=== PATIENT | female | born 1960 | race Caucasian/White ===

== ENCOUNTER 2018-07-11 12:41 | Day surgery (SDC) | payer BC ==
--- NOTE | 2018-07-10 14:15 | HP ---
REPORT DICTATED AND TRANSCRIBED AT [facility] ON 07/09/2018, FAXED TO [facility] ON 07/10/2018. DATE OF SURGERY: 07/11/2018 ANTICIPATED PROCEDURE: Vaginoscopy, colonoscopy, hemorrhoidectomy, possible posterior colporrhaphy. HISTORY OF PRESENT ILLNESS: Patient has above stated disorder. C-scope negative at age 50. She is having some prolapse. She is not exactly sure what. Options were discussed with her. We will do a complete exam. If there are limited hemorrhoids that need resecting or if there is a posterior cul-de-sac that needs repair, we could possibly do that concurrently. PAST MEDICAL HISTORY: ALLERGIES: CODEINE. MEDICATIONS: Zoloft. PAST SURGICAL HISTORY: Hysterectomy. Rotator cuff. SOCIAL HISTORY: Negative. FAMILY HISTORY: Negative. REVIEW OF SYSTEMS: Negative. PHYSICAL EXAMINATION: VITAL SIGNS: Normal. CHEST: Clear. COR: Regular. ANAL, RECTAL, VAGINAL: As stated.
[~2018-07-11 12:41] MED LIST: Lactated Ringers 1,000 ML IV SCH; MEFOXIN 2 GM PREMIX** 2 GM/50 ML ML IV ONE; Pepcid 20 MG VIAL IV SCH; Reglan 10 MG/2 ML IV ONE; Transderm Scop 1.5MG Patch ONE; Transderm Scop 1.5MG Patch TOP PRN
[2018-07-11] MEDS ORDERED: BRIDION 200MG/2ML IV ONE (12:42)
[2018-07-11] MEDS ORDERED: Zemuron 100 MG/10 ML IV ONE (12:42)
[2018-07-11] MEDS ORDERED: Versed 2 MG/2 ML Injection IV ONE (12:42)
[2018-07-11] MEDS ORDERED: SUBLIMAZE 100 MCG/2 ML IV ONE (12:42)
[2018-07-11] MEDS ORDERED: TORAdol 30 mg Injection IV ONE (12:42)
[2018-07-11] MEDS ORDERED: DIPRIVAN 200 MG/20 ML IV ONE (12:42)
[2018-07-11] MEDS ORDERED: Decadron 4 MG INJ IV ONE (12:42)
[2018-07-11] MEDS ORDERED: Zofran 4 MG/2 ML VIAL IV ONE (12:42)
[2018-07-11] MEDS ORDERED: Zofran 4 MG/2 ML VIAL ONE (18:37)
[2018-07-11] MEDS ORDERED: MORPHINE SULFATE 2 MG INJ IV PRN (20:07)
[2018-07-11] MEDS ORDERED: MORPHINE SULFATE 2 MG INJ ONE (20:08)
[2018-07-11] MEDS ORDERED: NORCO 5/325 MG PO PRN (20:15)
[2018-07-11] MEDS ORDERED: NORCO 5/325 MG ONE (20:16)
[2018-07-11 20:52] VITALS: BP 128/50; PULSE 77; O2SAT 97
--- NOTE | 2018-07-12 09:08 | OP ---
SURGERY DATE/TIME: 07/11/2018 180 PREOPERATIVE DIAGNOSIS: Patient requiring colonoscopy. POSTOPERATIVE DIAGNOSIS: Patient requiring colonoscopy. PROCEDURE: Colonoscopy. SURGEON: Bruce Hussein M.D. ANESTHESIA: General. COMPLICATIONS: None. CONDITION: Stable. INDICATION: She is requiring exam under anesthesia. She may have some prolapse. She certainly seems to have some hemorrhoidal tissue and she may have a rectocele. DESCRIPTION OF PROCEDURE: She was taken to surgery. Lithotomy. The colonoscope placed in the vagina. Not much information was obtained. It did not hold air well today. It was then placed in the rectum. There was external hemorrhoidal tags. There were internal hemorrhoids. There was a rectocele. It was a little better demonstrated even with the colonoscope. The colonoscope advanced up to the cecum. Base of cecum, ileocecal valve, ascending, hepatic, transverse, splenic, descending, sigmoid, rectum, anus. Six minute withdrawal time. Excellent prep. No mucosal lesions. Just a few scattered diverticulum and there was a rectocele. Exam under anesthesia anterior handheld speculum was placed and there was clearly a rectocele. The anterior vaginal mucosa was scored. The endopelvic fascia defined. Seven sutures #2-0 PDS were placed and then sequentially tied. The excess vaginal mucosa was trimmed off and it was closed with running locking suture of 2-0 Vicryl. There were three external hemorrhoids which were taken and secured with 2-0 chromic and there were three internals that were taken with suture #0 then clamped, amputated and secured with 2-0 chromic. Still allowed one and a half fingertips. There seems to be just a little of spasm in the anal canal. The patient tolerated the procedure satisfactorily. Findings discussed with the family in the waiting room.
== END 2018-07-11 21:10 | disposition home or self-care (01) ==
LOC: SDC 12:41
PROVIDERS: ATTEND Surgery
DX: K64.4 Residual hemorrhoidal skin tags (principal); K64.8 Other hemorrhoids; K57.30 Diverticulosis of large intestine without perforation or abscess without bleeding; N81.6 Rectocele; N89.8 Other specified noninflammatory disorders of vagina
CPT/HCPCS: 88302; 88304; J0694; J1100; J1885; J2250; J2270; J2405; J2704; J3010; A9270-GY

== ENCOUNTER 2020-04-07 18:28 | Emergency (ER) | payer BC ==
--- NOTE | 2020-04-07 18:29 | ERPHSYRPT ---
- History of Present Illness Time Seen by Provider: 04/07/20 18:29 Historian: patient Exam Limitations: no limitations Physician History: This is a 59-year-old overweight white female who presents with first diarrhea yesterday with mild right upper quad abdominal pain with radiation to her right back. Today, after eating yeast donuts she began having more significant right upper quadrant abdominal pain that has not let up. She has not had diarrhea since an episode last night. She also had a single, significant vomiting episode when the pain was severe earlier today. Patient denies chest pain. She does not have shortness of breath. She has had a hysterectomy in the past as well as a hemorrhoidectomy. No other abdominal surgeries have been performed. Timing/Duration: yesterday Abdominal Pain Onset Location: RUQ Pain Radiation: back Severity of Pain-Max: moderate Severity of Pain-Current: moderate Associated Symptoms: diarrhea, nausea, vomiting, No chest pain, No fever/chills Previous symptoms: no prior history Allergies/Adverse Reactions: codeine Adverse Reaction (Verified 04/07/20 18:55) Home Medications: Duloxetine HCl 30 mg [Cymbalta 30 MG Capsule] 30 mg PO DAILY 04/07/20 [History] Hx Tetanus, Diphtheria Vaccination/Date Given: No Hx Influenza Vaccination/Date Given: No Hx Pneumococcal Vaccination/Date Given: No Travel Risk - International Travel Have you traveled outside of the country in past 3 weeks: No - Coronavirus Screening Are you exhibiting any of the following symptoms?: No Close contact with a COVID-19 positive Pt in past 14-21 Days: No - Review of Systems Constitutional: No Symptoms Eyes: No Symptoms Ears, Nose, & Throat: No Symptoms Respiratory: No Symptoms Cardiac: No Symptoms Abdominal/Gastrointestinal: Abdominal Pain, Nausea, Vomiting Genitourinary Symptoms: No Symptoms Musculoskeletal: No Symptoms Skin: No Symptoms Neurological: No Symptoms Psychological: No Symptoms Endocrine: No Symptoms Hematologic/Lymphatic: No Symptoms Immunological/Allergic: No Symptoms All Other Systems: Reviewed and Negative - Past Medical History Pertinent Past Medical History: Yes Neurological History: Migraines ENT History: Other Cardiac History: No Pertinent History Respiratory History: No Pertinent History Endocrine Medical History: No Pertinent History Musculoskeletal History: No Pertinent History GI Medical History: Hemorrhoids History: No Pertinent History Psycho-Social History: No Pertinent History Female Reproductive Disorders: No Pertinent History Other Medical History: SINUS PROBLEMS - Past Surgical History Past Surgical History: Yes Neuro Surgical History: No Pertinent History Cardiac: No Pertinent History Respiratory: No Pertinent History Gastrointestinal: No Pertinent History Genitourinary: No Pertinent History Musculoskeletal: Orthopedic Surgery, Other Female Surgical History: Hysterectomy Other Surgical History: RIGHT SHOULDER ROTAR CUFF. LEFT FOOT PLANTER SURGERY - Social History Smoking Status: Never smoker Exposure to second hand smoke: No Drug Use: none Patient Lives Alone: No - Nursing Vital Signs Nursing Vital Signs: Initial Vital Signs Temperature 98.6 F 04/07/20 18:36 Pulse Rate 72 04/07/20 18:36 Respiratory Rate 18 04/07/20 18:36 Blood Pressure 174/82 04/07/20 18:36 O2 Sat by Pulse Oximetry 98 04/07/20 18:36 Pain Scale Pain Intensity 6 - Physical Exam General Appearance: mild distress, alert, anxiety, obese Eye Exam: PERRL/EOMI, eyes nml inspection Ears, Nose, Throat Exam: normal ENT inspection, moist mucous membranes Neck Exam: normal inspection, non-tender, supple, full range of motion Respiratory Exam: normal breath sounds, lungs clear, airway intact, No chest tenderness, No respiratory distress Cardiovascular Exam: regular rate/rhythm, normal heart sounds, normal peripheral pulses Gastrointestinal/Abdomen Exam: soft, normal bowel sounds, tenderness (With palpation), guarding (Quadrant with palpation) Pelvic Exam: not done Rectal Exam: not done Back Exam: normal inspection, normal range of motion, No CVA tenderness, No vertebral tenderness Extremity Exam: normal inspection, normal range of motion, pelvis stable Neurologic Exam: alert, oriented x 3, cooperative, licensed dispensing optician II-XII nml as tested, normal mood/affect, nml cerebellar function, nml station & gait, sensation nml Skin Exam: normal color, warm, dry Lymphatic Exam: No adenopathy SpO2 Interpretation: normal O2 Delivery: Room Air - Course Nursing assessment & vital signs reviewed: Yes Ordered Tests: Active Orders 24 hr Category Date Time Status IV Insertion STAT Care 04/07/20 19:14 Active ABDOMEN AND PELVIS W/0 CONTRAS [CT] Stat Exams 04/07/20 19:15 Taken AMYLASE Stat Lab 04/07/20 19:23 Completed CBC W DIFF Stat Lab 04/07/20 19:23 Completed CMP Stat Lab 04/07/20 19:23 Completed LIPASE Stat Lab 04/07/20 19:23 Completed Lactic Acid Stat Lab 04/07/20 19:20 Completed UA W/RFX UR CULTURE Stat Lab 04/07/20 19:23 Completed Medication Summary Generic Name Dose Route Start Last Admin Trade Name Vidya PRN Reason Stop Dose Admin Sodium Chloride 1,000 mls @ 999 mls/hr 04/07/20 19:14 04/07/20 19:30 Sodium Chloride 0.9% 1000 Ml IV 04/07/20 20:14 999 mls/hr .[id number] STA Administration Discontinued Medications Generic Name Dose Route Start Last Admin Trade Name Vidya PRN Reason Stop Dose Admin Sodium Chloride Confirm 04/07/20 19:28 Sodium Chloride 0.9% 1000 Ml Administered 04/07/20 19:29 Dose 1,000 mls @ ud .ROUTE .STK-MED ONE Meperidine HCl 25 mg 04/07/20 19:16 04/07/20 19:30 Demerol 25mg Syringe IV 04/07/20 19:17 25 mg STAT ONE Administration Meperidine HCl Confirm 04/07/20 19:28 Demerol 25mg Syringe Administered 04/07/20 19:29 Dose 25 mg .ROUTE .STK-MED ONE Ondansetron HCl 4 mg 04/07/20 19:14 04/07/20 19:30 Zofran 4 Mg/2 Ml Vial IV 04/07/20 19:15 4 mg STAT ONE Administration Ondansetron HCl Confirm 04/07/20 19:28 Zofran 4 Mg/2 Ml Vial Administered 04/07/20 19:29 Dose 4 mg .ROUTE .STK-MED ONE Lab/Rad Data: Laboratory Result Diagrams 04/07/20 19:23 04/07/20 19:23 Laboratory Results 04/07/20 04/07/20 04/07/20 Range/Units 19:23 19:23 19:23 WBC 9.4 (4.0-10.5) K/mm3 RBC 4.67 (4.1-5.4) M/mm3 Hgb 12.8 (12.0-16.0) gm/dl Hct 41.1 (35-47) % MCV 88.0 (78-100) fl MCH 27.4 (26-32) pg MCHC 31.1 L (32-36) g/dl RDW 15.7 H (11.5-14.0) % Plt Count 268 (150-450) K/mm3 MPV 11.3 H (7.5-11.0) fl Gran % 65.5 (36.0-66.0) % Eos # (Auto) 0.18 (0-0.5) Absolute Lymphs (auto) 2.27 (1.0-4.6) Absolute Monos (auto) 0.75 (0.0-1.3) Lymphocytes % 24.2 (24.0-44.0) % Monocytes % 8.0 (0.0-12.0) % Eosinophils % 1.9 (0.00-5.0) % Basophils % 0.4 (0.0-0.4) % Absolute Granulocytes 6.13 (1.4-6.9) Basophils # 0.04 (0-0.4) Sodium 139 (137-145) mmol/L Potassium 3.9 (3.5-5.1) mmol/L Chloride 100 (98-107) mmol/L Carbon Dioxide 31 H (22-30) mmol/L Anion Gap 11.1 (5-15) MEQ/L BUN 12 (7-17) mg/dL Creatinine 0.88 (0.52-1.04) mg/dL Estimated GFR > 60.0 ML/MIN Glucose 107 H (74-106) mg/dL Lactic Acid (0.4-2.0) Calcium 9.4 (8.4-10.2) mg/dL Total Bilirubin 0.20 (0.2-1.3) mg/dL AST 25 (14-36) U/L ALT 23 (0-35) U/L Alkaline Phosphatase 117 (38-126) U/L Serum Total Protein 8.0 (6.3-8.2) g/dL Albumin 4.5 (3.5-5.0) g/dL Amylase 61 (30-110) U/L Lipase 39 (23-300) U/L Urine Color YELLOW (YELLOW) Urine Appearance CLEAR (CLEAR) Urine pH 5.0 (5-6) Ur Specific [place] 1.015 (1.005-1.025) Urine Protein NEGATIVE (Negative) Urine Ketones NEGATIVE (NEGATIVE) Urine Blood NEGATIVE (0-5) Mark/ul Urine Nitrite NEGATIVE (NEGATIVE) Urine Bilirubin NEGATIVE (NEGATIVE) Urine Urobilinogen NEGATIVE (0-1) mg/dL Ur Leukocyte Esterase SMALL (NEGATIVE) Urine WBC (Auto) 6-10 (0-5) /HPF Urine RBC (Auto) NONE (0-2) /HPF U Epithel Cells (Auto) NONE (FEW) /HPF Urine Bacteria (Auto) NONE (NEGATIVE) /HPF Urine Mucus (Auto) SLIGHT (NEGATIVE) /HPF Urine Culture Reflexed NO (NO) Urine Glucose NEGATIVE (NEGATIVE) mg/dL 04/07/20 Range/Units 19:20 WBC (4.0-10.5) K/mm3 RBC (4.1-5.4) M/mm3 Hgb (12.0-16.0) gm/dl Hct (35-47) % MCV (78-100) fl MCH (26-32) pg MCHC (32-36) g/dl RDW (11.5-14.0) % Plt Count (150-450) K/mm3 MPV (7.5-11.0) fl Gran % (36.0-66.0) % Eos # (Auto) (0-0.5) Absolute Lymphs (auto) (1.0-4.6) Absolute Monos (auto) (0.0-1.3) Lymphocytes % (24.0-44.0) % Monocytes % (0.0-12.0) % Eosinophils % (0.00-5.0) % Basophils % (0.0-0.4) % Absolute Granulocytes (1.4-6.9) Basophils # (0-0.4) Sodium (137-145) mmol/L Potassium (3.5-5.1) mmol/L Chloride (98-107) mmol/L Carbon Dioxide (22-30) mmol/L Anion Gap (5-15) MEQ/L BUN (7-17) mg/dL Creatinine (0.52-1.04) mg/dL Estimated GFR ML/MIN Glucose (74-106) mg/dL Lactic Acid 1.5 (0.4-2.0) Calcium (8.4-10.2) mg/dL Total Bilirubin (0.2-1.3) mg/dL AST (14-36) U/L ALT (0-35) U/L Alkaline Phosphatase (38-126) U/L Serum Total Protein (6.3-8.2) g/dL Albumin (3.5-5.0) g/dL Amylase (30-110) U/L Lipase (23-300) U/L Urine Color (YELLOW) Urine Appearance (CLEAR) Urine pH (5-6) Ur Specific [place] (1.005-1.025) Urine Protein (Negative) Urine Ketones (NEGATIVE) Urine Blood (0-5) Mark/ul Urine Nitrite (NEGATIVE) Urine Bilirubin (NEGATIVE) Urine Urobilinogen (0-1) mg/dL Ur Leukocyte Esterase (NEGATIVE) Urine WBC (Auto) (0-5) /HPF Urine RBC (Auto) (0-2) /HPF U Epithel Cells (Auto) (FEW) /HPF Urine Bacteria (Auto) (NEGATIVE) /HPF Urine Mucus (Auto) (NEGATIVE) /HPF Urine Culture Reflexed (NO) Urine Glucose (NEGATIVE) mg/dL - Progress Progress: improved, pain not gone completely Progress Note: 04/07/20 19:20 Patient states she "goes crazy" after taking codeine. However, she is taken [place] and Vicodin and other forms of hydrocodone without any problems. Patient also states that she has had Demerol in the past without any problems. 04/07/20 19:59 CAT scan of the abdomen and pelvis without contrast shows for 1 cm gallstones all near the neck of the gallbladder. The remaining abdominal/pelvic CAT scan is negative. Counseled pt/family regarding: lab results, diagnosis, need for follow-up, rad results - Departure Departure Disposition: Home Clinical Impression: Right upper quadrant abdominal pain, UTI (urinary tract infection), Symptomatic cholelithiasis Condition: Stable Critical Care Time: No Referrals: LORENZA AGUILAR MD [Primary Care Provider] - Additional Instructions: Drink plenty of fluids. Avoid fatty greasy spicy foods. Follow-up with your primary care doctor for further management. Prescriptions: Ondansetron ODT 4 MG [Zofran Odt 4 mg] 4 mg PO Q6H PRN PRN #10 tab.rapdis PRN Reason: Vomiting Hydrocodone/APAP 5-325 Tab^^^ [[place] 5-325 Tablet^^^] 1 tab PO Q8H PRN PRN #6 tablet MDD 3 PRN Reason: Pain Ciprofloxacin [Cipro 500 MG] 500 mg PO BID #14 tablet
[2020-04-07] MEDS ORDERED: Zofran 4 MG/2 ML VIAL IV ONE (19:14)
[2020-04-07] MEDS ORDERED: Sodium Chloride 0.9% 1000 ML 1,000 ML IV STA (19:14)
[2020-04-07] MEDS ORDERED: DEMEROL 25MG SYRINGE IV ONE (19:16)
[2020-04-07 19:27] LABS: Absolute Neutrophil Ct (ANC) 6.13 (1.4-6.9); BASOPHIL % 0.4 % (0.0-0.4); Basophil (Absolute #) 0.04 (0-0.4); Eosinophil % 1.9 % (0.00-5.0); Eosinophil (Absolute #) 0.18 (0-0.5); Hematocrit 41.1 % (35-47); Hemoglobin 12.8 gm/dl (12.0-16.0); Lymphocyte (Absolute #) 2.27 (1.0-4.6); Lymphocytes % 24.2 % (24.0-44.0); Mean Corpuscular Hemoglobin 27.4 pg (26-32); Mean Corpuscular Hgb Concent. 31.1 g/dl (32-36); Mean Platelet Volume 11.3 fl (7.5-11.0); Monocyte (Absolute #) 0.75 (0.0-1.3); Neutrophil % 65.5 % (36.0-66.0); Platelet Count 268 K/mm3 (150-450); Red Blood Count 4.67 M/mm3 (4.1-5.4); Red Cell Distribution Width 15.7 % (11.5-14.0); White Blood Count 9.4 K/mm3 (4.0-10.5)
[2020-04-07] MEDS ORDERED: Sodium Chloride 0.9% 1000 ML 1,000 ML ONE (19:28)
[2020-04-07] MEDS ORDERED: Zofran 4 MG/2 ML VIAL ONE (19:28)
[2020-04-07] MEDS ORDERED: DEMEROL 25MG SYRINGE ONE (19:28)
[2020-04-07 19:32] LABS: Appearance CLEAR (CLEAR); Bilirubin NEGATIVE (NEGATIVE); Blood NEGATIVE Ery/ul (0-5); Glucose NEGATIVE (NEGATIVE); Ketones NEGATIVE (NEGATIVE); Leukocyte Esterase SMALL (NEGATIVE); Mucus SLIGHT /HPF (NEGATIVE); Nitrite NEGATIVE (NEGATIVE); Protein,Urine Dip NEGATIVE (Negative); Specific Gravity 1.015 (1.005-1.025); Urobilinogen NEGATIVE mg/dL (0-1)
[2020-04-07 19:35] LABS: ALBUMIN 4.5 g/dL (3.5-5.0); ALKALINE PHOSPHATASE 117 U/L (38-126); AMYLASE 61 U/L (30-110); ANION GAP 11.1 MEQ/L (5-15); BLOOD UREA NITROGEN 12 mg/dL (7-17); CHLORIDE 100 mmol/L (98-107); Calcium 9.4 mg/dL (8.4-10.2); Carbon Dioxide 31 mmol/L (22-30); Creatinine 1 0.88 mg/dL (0.52-1.04); EST GLOMERULAR FILTRATION RATE > 60.0 ML/MIN; Glucose 107 mg/dL (74-106); LIPASE 39 U/L (23-300); Potassium 3.9 mmol/L (3.5-5.1); SGOT/AST 25 U/L (14-36); SGPT/ALT 23 U/L (0-35); SODIUM 139 mmol/L (137-145)
[2020-04-07 19:40] VITALS: O2SAT 96
[2020-04-07] MEDS ORDERED: Levofloxacin 500 MG Tablet PO ONE (20:00)
[2020-04-07] MEDS ORDERED: NORCO 5/325 MG PO ONE (20:01)
[2020-04-07] MEDS ORDERED: ZOFRAN ODT 4 MG PO ONE ×2 (20:02→20:11)
[2020-04-07] MEDS ORDERED: Levofloxacin 500 MG Tablet ONE (20:03)
[2020-04-07] MEDS ORDERED: ZOFRAN ODT 4 MG ONE (20:08)
[2020-04-07] MEDS ORDERED: NORCO 5/325 MG ONE (20:08)
[2020-04-07 20:20] VITALS: BP 146/79; PULSE 76
--- NOTE | 2020-04-08 08:42 | XRAY ---
Indication: Right upper quadrant pain one day. Nausea and vomiting. Multiple contiguous axial images obtained through the abdomen and pelvis without contrast as ordered. Comparison: August 21, 2013. Lung bases again demonstrates minimal subsegmental atelectasis/scarring. No infiltrate or effusion. Heart is not enlarged. Noncontrasted stomach and bowel loops appear nonobstructed. Normal appendix. Again hysterectomy. Gallbladder now mildly distended with 4 new gallstones approximately 1 cm each and adjacent to the neck of the gallbladder. No abnormal biliary distention. Remaining liver, pancreas, spleen, adrenal glands, kidneys, ureters, and bladder appear unremarkable for noncontrast exam. Minimal aortic calcifications without AAA. Osseous structures intact with minimal degenerative changes throughout the spine. Impression: 1. Mildly distended gallbladder with new gallstones. Gallbladder sonogram may yield further information. 2. Remaining CT abdomen/pelvis without contrast exam is negative.
== END 2020-04-07 20:33 | disposition home or self-care (01) ==
LOC: ED 18:28
DX: R10.11 Right upper quadrant pain (principal); N39.0 Urinary tract infection, site not specified; K80.20 Calculus of gallbladder without cholecystitis without obstruction
CPT/HCPCS: 36000; 36415; 74176; 80053; 81001; 82150; 83605; 83690; 85025; 96374; 96375; 99284; J2175; J2405; Q0162; A9270-GY

== ENCOUNTER 2020-04-26 09:53 | Day surgery (SDC) | payer BC ==
--- NOTE | 2020-04-26 08:58 | HP ---
DATE OF SURGERY: 04/26/2020 HISTORY OF PRESENT ILLNESS: The patient is a 59 year old with two week history of bad gallbladder attacks requiring emergency department visit, right upper quadrant pain radiating to her back and right shoulder, nausea after eating. No jaundice. She denied any prior liver problems. Bowel movements are frequent according to the patient. PAST MEDICAL HISTORY: Anxiety. PAST SURGICAL HISTORY: Hysterectomy. Rotator cuff. Hemorrhoid. MEDICATIONS: Anxiety medications including Cymbalta. ALLERGIES: DEMEROL. FAMILY HISTORY: Negative in regards to this problem. SOCIAL HISTORY: Denied smoking or alcohol abuse. REVIEW OF SYSTEMS: Fourteen systems reviewed pertinent for as noted above. No chest pain or palpitations. Other than the pain radiating to the shoulder. Other systems negative or noncontributory as above and per preadmission questionnaire. LAB DATA AND TESTS: CT did show cholelithiasis. PHYSICAL EXAMINATION: GENERAL: No acute distress. HEENT: Sclerae nonicteric. NECK: No JVD. CHEST: Equal excursion, nonlabored breathing. CVS: Regular rate and rhythm. ABDOMEN: Soft, some tenderness to right upper quadrant. No peritoneal signs. EXTREMITIES: No significant edema. NEURO: Alert, oriented, moving extremities symmetrically. No gross motor deficits noted. PSYCH: Appropriate mood and affect. SKIN: Dry, intact. IMPRESSION: Acute exacerbation chronic cholecystitis/cholelithiasis. I feel the patient will benefit from cholecystectomy. She was shown the gallbladder pamphlet and risk sheet, explained the procedure in detail including but not limited to bleeding or infection, risk of trocar injury or hernia, risk of bowel, bladder or blood vessel injury, risk of bile leak, bile duct injury, retained stone or sludge possibly requiring further procedure either open or ERCP, general risk of anesthesia, deep venous thrombosis, pulmonary embolism, pneumonia, perioperative risk of aches, pains, bloating, constipation and/or loose stools possibly even chronic in nature, possible open procedure, possibility this procedure may not improve her symptoms. She may need further work up and/or testing, endoscopy, other studies or procedures. She understands and agrees to the planned procedure, will proceed with laparoscopic cholecystectomy with possible open as an outpatient.
[~2020-04-26 09:53] MED LIST changes: +Lactated Ringers 1,000 ML IV ONE; -Lactated Ringers 1,000 ML IV SCH; -MEFOXIN 2 GM PREMIX** 2 GM/50 ML ML IV ONE; -Pepcid 20 MG VIAL IV SCH; -Reglan 10 MG/2 ML IV ONE; +Sensorcaine 0.25% 10 ML ONE; -Transderm Scop 1.5MG Patch ONE; -Transderm Scop 1.5MG Patch TOP PRN
[2020-04-26] MEDS ORDERED: Transderm Scop 1.5MG Patch TOP ONE (09:58)
[2020-04-26] MEDS ORDERED: Reglan 10 MG/2 ML IV ONE (10:00)
[2020-04-26] MEDS ORDERED: Pepcid 20 MG VIAL IV ONE ×3 (10:00→10:09)
[2020-04-26] MEDS ORDERED: Reglan 10 MG/2 ML ONE (10:09)
[2020-04-26] MEDS ORDERED: Transderm Scop 1.5MG Patch ONE (10:09)
[2020-04-26] MEDS ORDERED: Lactated Ringers 1,000 ML IV ONE (10:09)
[2020-04-26] MEDS ORDERED: DIPRIVAN 200 MG/20 ML IV ONE (10:18)
[2020-04-26] MEDS ORDERED: Zemuron 100 MG/10 ML ONE (10:18)
[2020-04-26] MEDS ORDERED: Versed 2 MG/2 ML Injection ONE (10:19)
[2020-04-26] MEDS ORDERED: SUBLIMAZE 250 MCG/5 ML ONE (10:19)
[2020-04-26] MEDS ORDERED: Decadron 4 MG INJ ONE (10:20)
[2020-04-26] MEDS ORDERED: Lactated Ringers 1,000 ML IV SCH (10:30)
[2020-04-26 10:41] LABS: BLOOD UREA NITROGEN 11 mg/dL (7-17); Carbon Dioxide 28 mmol/L (22-30); EST GLOMERULAR FILTRATION RATE > 60.0 ML/MIN; Glucose 90 mg/dL (74-106); Potassium 3.9 mmol/L (3.5-5.1); SODIUM 138 mmol/L (137-145)
[2020-04-26 10:43] LABS: CHLORIDE 104 mmol/L (98-107)
[2020-04-26] MEDS ORDERED: MEFOXIN 2 GM PREMIX** 2 GM/50 ML ML IV ONE (10:53)
[2020-04-26] MEDS ORDERED: MEFOXIN 2 GM PREMIX** 2 GM/50 ML ML IV SCH (11:00)
[2020-04-26] MEDS ORDERED: Xylocaine-Mpf 2% 5 Ml Vial ONE (11:42)
[2020-04-26] MEDS ORDERED: BRIDION 200MG/2ML IV ONE (13:02)
[2020-04-26] MEDS ORDERED: Zofran 4 MG/2 ML VIAL ONE (13:02)
[2020-04-26 14:19] LABS: ANION GAP 9.9 MEQ/L (5-15)
--- NOTE | 2020-04-26 14:41 | OP ---
SURGERY DATE/TIME: 04/26/2020 1221 PREOPERATIVE DIAGNOSIS: Acute exacerbation of symptomatic cholelithiasis, chronic cholecystitis. POSTOPERATIVE DIAGNOSIS: Acute exacerbation of symptomatic cholelithiasis, chronic cholecystitis. PROCEDURE: Laparoscopic cholecystectomy. SURGEON: Dr. Dash Tovar. ANESTHESIA: General. ESTIMATED BLOOD LOSS: Minimal. INDICATIONS: As noted above. Risks and benefits explained in detail but not limited to and consent obtained. DESCRIPTION OF PROCEDURE AND FINDINGS: The patient is taken to the operating room. General anesthesia induced. Abdomen prepped and draped in the usual sterile fashion. After official time out and no disagreement with planned procedure, a transverse incision made at the supraumbilical area. Fascia grasped and pulled upward. Veress needle inserted and tested with saline. Pneumoperitoneum accomplished insufflating opening pressure of 0-15. An 11 mm bladeless port and camera inserted without difficulty followed by two - 5 mm right upper quadrant ports and 5 mm epigastric port. There is a minimal amount of CO2 insufflated in the falciform but dissipated towards the end of the procedure. The gallbladder grasped retracted over the edge of the liver dissected posterior, lateral to anterior fashion. The ICG mode used to visualize the gallbladder, common duct and cystic duct. The cystic duct was carefully well skeletonized until the critical view obtained both anteriorly and posteriorly. Once this was accomplished the cystic duct clipped x3 and divided in the usual fashion. Followed by clipping the main cystic artery clipped x3 and divided in usual fashion. The gallbladder was quite vascular. It required clipping additional oozing side branches off the cystic artery directly on the gallbladder wall as necessary. Just prior to releasing final attachments to the liver bed, liver bed re-inspected. Clips noted in place on cystic duct. No signs of any active bleeding or bile leakage. It was felt there was no benefit in drain placement. Gallbladder placed in the provided sac pulled up and out the supraumbilical port site which was then closed with puncture closure device with #1 Vicryl. Copious amount of irrigation accomplished lateral to the liver and subhepatic space irrigating until clear. Liver bed re-inspected. Clips noted in place cystic duct and cystic artery stumps. No signs of any active bleeding or bile leakage. It was felt there is no benefit from drain placement. Pneumoperitoneum decompressed. The wound irrigated out. Skin incision closed with 4-0 Vicryl. Steri-Strips and sterile dressing applied. 0.25% Marcaine local injected along the skin incision fascial defect. The patient tolerated the procedure well. There were no immediate complications. Findings discussed with the family over the phone.
[2020-04-26 14:59] VITALS: O2SAT 97
[2020-04-26 15:04] VITALS: BP 135/75; PULSE 68
== END 2020-04-26 15:15 | disposition home or self-care (01) ==
LOC: SDC 09:53
PROVIDERS: ATTEND Surgery
DX: K80.10 Calculus of gallbladder with chronic cholecystitis without obstruction (principal); Z79.899 Other long term (current) drug therapy
CPT/HCPCS: 36415; 80048; J0694; J1100; J2250; J2405; J2704; J3010; A9270-GY

== ENCOUNTER 2022-02-11 00:05 | Emergency (ER) | payer BC ==
[2022-02-11 00:18] VITALS: O2SAT 96
[2022-02-11] MEDS ORDERED: Pepcid 20 MG VIAL IV ONE ×3 (00:30→00:41)
[2022-02-11] MEDS ORDERED: solu-MEDROL 125 MG, Sterile H2O 10 ml 2 ML IV ONE ×2 (00:31)
--- NOTE | 2022-02-11 00:36 | ERPHSYRPT ---
- History of Present Illness Source: patient Exam Limitations: no limitations Patient Subjective Stated Complaint: pt states she has had an allergic reaction, unsure what has caused the reaction. pt has no pain but diffuse itching Triage Nursing Assessment: pt is alert and oriented, red raised rash present generally to body. pt is scratching entire body stating she has no pain but is itchy. no SOB, no swelling in mouth. pt states she has had a similar reaction to beef in the past Physician History: 61 yo wf w urticaria beginning approx at 9:30. She states that it was probably precipitated by eating a beef hot dog. She is pruritic but denies dysphagia/dyspnea. Pt has a h/o of non-specific allergic reactions in the past but has not been allergy tested. N/V/D/ST/cough/coryza all denied. She took 50mg po Benadryl before coming to the ER Timing/Duration: other (9:30) Quality: itchy Severity: mild Location: generalized Possible Causes: foods (Possibly beef) Modifying Factors: Improves With: antihistamine Associated Symptoms: denies symptoms, rash Allergies/Adverse Reactions: meperidine [From Demerol] Adverse Reaction (Intermediate, Verified 04/26/20 10:31) Headache morphine Adverse Reaction (Intermediate, Verified 04/26/20 10:31) states "makes me crazy" Anesthetics - Amide Type - Select A Adverse Reaction (Mild, Verified 04/26/20 10:31) Nausea and Vomiting Home Medications: Duloxetine HCl 30 mg [Cymbalta 30 MG Capsule] 30 mg PO DAILY 04/19/20 [History] Hx Tetanus, Diphtheria Vaccination/Date Given: No Hx Influenza Vaccination/Date Given: No Hx Pneumococcal Vaccination/Date Given: No Travel Risk - International Travel Have you traveled outside of the country in past 3 weeks: No - Coronavirus Screening Are you exhibiting any of the following symptoms?: No Close contact with a COVID-19 positive Pt in past 14-21 Days: No - Vaccine Status Have you recieved a Covid-19 vaccination: Yes Division [employer]: [employer] - Vaccination Dates Date of 2cond Vaccination (if applicable): unknown - Review of Systems Constitutional: No Symptoms Eyes: No Symptoms Ears, Nose, & Throat: No Symptoms Respiratory: No Symptoms Cardiac: No Symptoms Abdominal/Gastrointestinal: No Symptoms Genitourinary Symptoms: No Symptoms Musculoskeletal: No Symptoms Skin: Rash Neurological: No Symptoms Psychological: No Symptoms Endocrine: No Symptoms Hematologic/Lymphatic: No Symptoms Immunological/Allergic: No Symptoms - Past Medical History Pertinent Past Medical History: Yes Neurological History: Migraines ENT History: Other Cardiac History: No Pertinent History Respiratory History: No Pertinent History Endocrine Medical History: No Pertinent History Musculoskeletal History: No Pertinent History GI Medical History: Hemorrhoids History: No Pertinent History Psycho-Social History: Anxiety Female Reproductive Disorders: No Pertinent History Other Medical History: SINUS PROBLEMS - Past Surgical History Past Surgical History: Yes Neuro Surgical History: No Pertinent History Cardiac: No Pertinent History Respiratory: No Pertinent History Gastrointestinal: Cholecystectomy, Hemorrhoidectomy Genitourinary: No Pertinent History Musculoskeletal: Orthopedic Surgery, Other Female Surgical History: Hysterectomy Other Surgical History: RIGHT SHOULDER ROTAR CUFF. LEFT FOOT PLANTER SURGERY - Social History Smoking Status: Never smoker Exposure to second hand smoke: No Drug Use: none Patient Lives Alone: No - Nursing Vital Signs Nursing Vital Signs: Initial Vital Signs Temperature 97.1 F 02/11/22 00:08 Pulse Rate 75 02/11/22 00:08 Respiratory Rate 18 02/11/22 00:08 Blood Pressure 152/55 02/11/22 00:08 O2 Sat by Pulse Oximetry 96 02/11/22 00:08 Pain Scale Pain Intensity 0 Hypertensive - Physical Exam General Appearance: no apparent distress Eye Exam: PERRL/EOMI, eyes nml inspection Ears, Nose, Throat Exam: normal ENT inspection, TMs normal, pharynx normal, moist mucous membranes Neck Exam: normal inspection, non-tender, supple, full range of motion, No meningismus, No mass, No Brudzinski, No Kernig's, No carotid bruit Respiratory Exam: normal breath sounds, lungs clear, airway intact Cardiovascular Exam: regular rate/rhythm, normal heart sounds, normal peripheral pulses, capillary refill <2 sec, No murmur Gastrointestinal/Abdomen Exam: soft, normal bowel sounds Back Exam: normal inspection, normal range of motion Extremity Exam: normal inspection Neurologic Exam: alert, oriented x 3, cooperative, reconciliation analyst II-XII nml as tested, normal mood/affect, nml cerebellar function, nml station & gait, sensation nml, No motor deficits, No sensory deficit Skin Exam: other (Diffuse urticaria) Lymphatic Exam: No adenopathy SpO2 Interpretation: normal SpO2: 96 O2 Delivery: Room Air - Course Nursing assessment & vital signs reviewed: Yes Ordered Tests: Medication Summary Discontinued Medications Generic Name Dose Route Start Last Admin Trade Name Vidya PRN Reason Stop Dose Admin Methylprednisolone Sodium 0 mg 02/11/22 00:31 02/11/22 00:43 Succinate 125 mg/ Sterile IV 02/11/22 00:32 125 mg Water 2 ml STAT ONE Administration Famotidine 40 mg 02/11/22 00:30 02/11/22 00:41 Famotidine 20 Mg/1 Vial IV 02/11/22 00:31 40 mg STAT ONE Administration Famotidine Confirm 02/11/22 00:37 Famotidine 20 Mg/1 Vial Administered 02/11/22 00:38 Dose 20 mg IV .STK-MED ONE Famotidine Confirm 02/11/22 00:41 Famotidine 20 Mg/1 Vial Administered 02/11/22 00:42 Dose 20 mg IV .STK-MED ONE Methylprednisolone Sodium Succinate Confirm 02/11/22 00:37 Methylprednis Sod Succ 125 Mg/2 Ml Vial Administered 02/11/22 00:38 Dose 125 mg .ROUTE .STK-MED ONE Sterile Water Confirm 02/11/22 00:37 Water For Injection,Sterile 10 Ml Vial Administered 02/11/22 00:38 Dose 10 ml IJ .STK-MED ONE - Progress Progress: improved Progress Note: 02/11/22 01:06 40mg IV Pepcid/125mg IV Solumedrol w improvement Counseled pt/family regarding: diagnosis, need for follow-up - Departure Departure Disposition: Home Clinical Impression: Urticaria Condition: Stable Critical Care Time: No Referrals: LORENZA AGUILAR MD [Primary Care Provider] - Follow up/PCP as directed Instructions: Dillon (DC) Additional Instructions: Prednisone twice a day for 2 days Benedryl every 6 hours as needed EpiPen for severe allergic reaction(May repeat x1) Return to ER for worsening rash/trouble breathing/trouble swallowing Prescriptions: Prednisone 10 mg [Deltasone 10 mg] 10 mg PO BID #4 tablet EPINEPHrine [Epipen 2-Sanjay] 0.3 mg IM DAILY PRN PRN #2 PRN Reason: Allergies
[2022-02-11] MEDS ORDERED: solu-MEDROL ONE (00:37)
[2022-02-11] MEDS ORDERED: Sterile H2O 10 ml IJ ONE (00:37)
[2022-02-11 01:14] VITALS: BP 139/70; PULSE 67
== END 2022-02-11 01:24 | disposition home or self-care (01) ==
LOC: ED 00:05
DX: L50.9 Urticaria, unspecified (principal)
CPT/HCPCS: 96374; 96375; 99283; J2930

== ENCOUNTER 2023-10-22 09:33 | Day surgery (SDC) | payer BC ==
--- NOTE | 2023-10-22 07:23 | HP ---
HISTORY AND PHYSICAL HISTORY OF PRESENT ILLNESS: A 63-year-old, has some anemia, some rectal bleeding. She then underwent surgery, some sort of rectocele surgery per Dr. Hussein a few years ago. No pain, just bleeding. PAST MEDICAL HISTORY: She has had anemia and depression. PAST SURGICAL HISTORY: Cholecystectomy, had a hemorrhoid procedure in the past, had a rectocele in the past and hysterectomy in the past. Had a rotator cuff surgery in the past. MEDICATIONS: Cymbalta and iron. ALLERGIES: Codeine. SOCIAL HISTORY: No smoking or alcohol abuse. FAMILY HISTORY: Negative for colon cancer. Alzheimer's, diabetes, and heart disease. REVIEW OF SYSTEMS: Twelve systems reviewed. No chest pain or palpitations. Other systems negative as above and per preadmission questionnaire. PHYSICAL EXAMINATION: GENERAL: Height 5 feet 6 inches, BMI of 35.5. No acute distress. HEENT: Sclerae nonicteric. NECK: No JVD. CHEST: Equal excursion. Nonlabored breathing. CARDIOVASCULAR: Regular rate and rhythm. ABDOMEN: Soft. EXTREMITIES: No cyanosis or edema. NEUROLOGIC: Alert and oriented, moving extremities symmetrically. PSYCHIATRIC: Appropriate mood and affect. SKIN: Dry. RECTAL: Deferred until endoscopy exam. ASSESSMENT: Anemia and rectal bleeding, needs EGD, colonoscopy with possible hemorrhoid banding, depending on operative findings. Risks explained in detail including but not limited to risk of bleeding or infection, risk of bowel injury or perforation, risk of missed or nondiagnosis or incomplete exam possibly requiring barium enema or other studies or referrals, general risk of anesthesia or sedation, risk of bowel prep but not limited to, risk of progression of hemorrhoid disease, possibly requiring other procedures or referrals. We will proceed with EGD and colonoscopy and possible internal hemorrhoid banding as an outpatient. Otherwise, continue medications and iron and medication for depression.
[2023-10-22] MEDS: Lactated Ringers 1,000 ML IV SCH (09:50)
[2023-10-22 10:00] VITALS: RESP 18; O2SAT 95
[2023-10-22] MEDS ORDERED: DIPRIVAN 200 MG/20 ML IV ONE ×3 (11:23→11:50)
[2023-10-22] MEDS ORDERED: Xylocaine-Mpf 2% 5 Ml Vial ONE (11:23)
[2023-10-22 12:23] VITALS: TEMP 97.8
[2023-10-22 12:33] VITALS: BP 105/88; PULSE 76
--- NOTE | 2023-10-23 10:09 | OP ---
SURGERY DATE/TIME: 10/22/2023 1129 - 1156 PREOPERATIVE DIAGNOSES: History of some anemia, history of some rectal bleeding. POSTOPERATIVE DIAGNOSES: 1) Erosive gastritis with some petechial hemorrhage. 2) Diverticulosis. 3) Small early polyps versus hyperplastic lesions. 4) Grade 2 internal/external hemorrhoids. PROCEDURES: 1) Esophagogastroduodenoscopy with cold biopsy of the antrum to evaluate for H pylori. 2) Cold biopsy of distal esophagus to evaluate for normal variation versus short segment inflammation of distal esophagus. 3) Colonoscopy to the cecum. Hot biopsy polypectomy of transverse colon, sigmoid colon, and rectal polyps. 4) Internal hemorrhoid banding x2 columns (left lateral and right posterior). WITHDRAWAL TIME: Around 10 minutes on the colonoscopy. Prep was fair. ASA class 2. SURGEON: Tucker Tovar MD DESCRIPTION OF PROCEDURE AND FINDINGS: The patient was taken to the endoscopy room. MAC anesthesia induced. After official time out and no disagreement with planned procedure, bite block positioned. Video gastroscope easily passed down the esophagus through the patent pylorus to the junction of the third and fourth portions of the duodenum. Scope was carefully withdrawn. The duodenum was grossly unremarkable. Scope pulled back into the stomach. She had some mild erosive gastritis and some petechial hemorrhages. [place] some of her anemia could have been from this. There were no ulcers, no masses. On retroflex, GE junction snug against the scope. Cold biopsy was taken of the antrum for H pylori. The scope was pulled back. GE junction about 39 cm. There may have been some minimal inflammation versus normal variation distal esophagus. Cold biopsies taken. The remainder of esophagus was grossly unremarkable. Scope was withdrawn. Attention was then turned to the colonoscopy. Digital rectal exam revealed some internal and external hemorrhoids. Video colonoscope inserted and passed up through the slightly tortuous descending, sigmoid. With external pressure, the scope was passed around to the cecum. The appendiceal orifice and valve well visualized, photo documented. Prep overall was good. A little bit of liquidy stool was suction irrigated. The scope was slowly and carefully withdrawn over the next 10 minutes, stopping in the transverse colon. A little bit of small early polyp versus hyperplastic lesion, hot biopsy polypectomy. Good hemostasis noted. Another 2 or 3 in the sigmoid colon removed with hot biopsy polypectomy and a small one in the rectum was removed with hot biopsy polypectomy. Good hemostasis noted. Otherwise, scope was withdrawn. She did have some mild diverticulosis in the left colon. Otherwise, no signs any large polyps, masses, or obstructing lesions. The scope was withdrawn. She did have internal/external hemorrhoids. Half lancaster retractor carefully inserted. She has been having rectal bleeding and it was felt the left lateral and right posterior were large enough columns to warrant hemorrhoid banding. Suction machine crater was easily applied to tuft of tissue at the top edge of the hemorrhoid in both of these locations, left lateral and right posterior. Right anterior did not seem to be large enough to warrant any banding. The patient tolerated the procedure well. There were no immediate complications. Findings were discussed with the family out in the waiting area.
== END 2023-10-22 12:40 | disposition home or self-care (01) ==
LOC: SDC 09:33
PROVIDERS: ATTEND Surgery
DX: Z86.2 Personal history of diseases of the blood and blood-forming organs and certain disorders involving the immune mechanism (principal); Z87.19 Personal history of other diseases of the digestive system; K29.61 Other gastritis with bleeding; K57.30 Diverticulosis of large intestine without perforation or abscess without bleeding; K63.5 Polyp of colon; K64.4 Residual hemorrhoidal skin tags; K64.8 Other hemorrhoids
CPT/HCPCS: 93005; J2704